=== PATIENT | female | born 1975 | race Hispanic/Latino ===

== ENCOUNTER 2017-10-08 19:35 | Emergency (ER) | payer OTHER | END 2017-10-08 20:11 | disposition home or self-care (01) | LOC: EDH 19:35 | DX: S43.491A Other sprain of right shoulder joint, initial encounter (principal); X58.XXXA Exposure to other specified factors, initial encounter; Y93.89 Activity, other specified; Y92.69 Other specified industrial and construction area as the place of occurrence of the external cause; Y99.8 Other external cause status | CPT/HCPCS: 99281 ==

== ENCOUNTER → 2018-07-16 | Outpatient (CLI) | payer OTHER | END | disposition home or self-care (01) | LOC: RAH 13:21 | PROVIDERS: ATTEND Internal Medicine | DX: R10.9 Unspecified abdominal pain (principal) | CPT/HCPCS: 74021 ==

== ENCOUNTER 2019-06-25 15:00 | Inpatient (IN) | payer OTHER ==
[~2019-06-25] VITALS: Ht 167.6 cm; Wt 79.7 kg
[2019-06-25 15:10] VITALS: BP 119/57
[2019-06-25 15:23] LABS: BASOPHILS % (AUTO) 0.6 % (0.0-5.0); EOSINOPHILS % (AUTO) 2.1 % (0.0-8.0); HEMATOCRIT 40.5 % (36-48); MEAN CORPUSCULAR HEMOGLOBIN 29.3 pg (27.0-33.0); MONOCYTES % (AUTO) 7.9 % (3.0-13.0); NEUTROPHILS % (AUTO) 66.4 % (40.0-77.0); PLATELET COUNT (AUTO) 285 K/uL (130-400); RED BLOOD CELL COUNT(AUTO) 4.55 MIL/uL (4.00-5.50); WHITE BLOOD COUNT (AUTO) 6.6 K/uL (4.8-10.8)
[2019-06-25] MEDS ORDERED: DOCU100C33 PO (15:49)
[2019-06-25] MEDS ORDERED: BIOT10005 PO (15:49)
[2019-06-25] MEDS ORDERED: IBUP-2077 PO (15:49)
[2019-06-25] MEDS ORDERED: MELA10CA2 PO (15:49)
[2019-06-25] MEDS ORDERED: [UNRECOGNIZED DRUG - OTHER] PO (15:50)
[2019-06-26] VITALS (21 sets, daily range): BP systolic 84–114; BP diastolic 50–63
[2019-06-26] MEDS ORDERED: LACTATED RINGERS 1000ML 1,000 ML IV ONE (06:32)
[2019-06-26] MEDS ORDERED: CEFAZOLIN SODIUM 1 GM VIAL ONE (06:32)
[2019-06-26] MEDS ORDERED: SCOPOLAMINE HYDROBROMIDE 1 EACH ADH..PATCH TD ONE (07:02)
[2019-06-26] MEDS ORDERED: MIDAZOLAM HCL 1 MG/ML 2ML VIAL ONE (07:54)
[2019-06-26] MEDS ORDERED: DURAMORPH PF1 MG/ML 10ML AMP IV ONE (07:57)
[2019-06-26] MEDS ORDERED: FENTANYL CITRATE PF 50 MCG/1 ML 2ML VIAL ONE ×2 (07:57→10:35)
[2019-06-26] MEDS ORDERED: CEFAZOLIN SODIUM 1 GM VIAL IVP ONE (08:00)
[2019-06-26] MEDS ORDERED: PROPOFOL 10 MG/ML 20ML VIAL IV ONE (08:10)
[2019-06-26] MEDS ORDERED: ROCURONIUM 10MG/1ML SYR 10 MG/ML ML ONE ×2 (08:10→09:18)
[2019-06-26] MEDS ORDERED: LIDOCAINE PF 2% 5ML ABBOJECT ONE (08:10)
[2019-06-26] MEDS ORDERED: ONDANSETRON HCL 4 MG/2 ML VIAL ONE (08:36)
[2019-06-26] MEDS ORDERED: EPHEDRINE SULFATE 50 MG/ML AMPULE ONE (09:02)
[2019-06-26] MEDS ORDERED: CALDOLOR 800MG+NS 250ML 250 ML IV ONE (10:10)
[2019-06-26] MEDS ORDERED: KETAMINE 50MG/ML SYRINGE 50 MG/ML DISP.SYRIN IV ONE (10:12)
[2019-06-26] MEDS ORDERED: GLYCOPYRROLATE 1 MG/5 ML SYRINGE ONE (10:17)
[2019-06-26] MEDS ORDERED: NEOSTIGMINE 5MG/5ML SYR IV ONE (10:17)
[2019-06-26] MEDS ORDERED: PROMETHAZINE HCL 25 MG/ML 1ML AMPULE IM PRN ×2 (11:15)
[2019-06-26] MEDS ORDERED: MEPERIDINE-PF 75 MG/ML SYG IM PRN (11:15)
--- NOTE | 2019-06-26 11:45 | NUR ---
PATIENT ARRIVAL PATIENT RECEIVED BY BED FROM PACU IN STABLE CONDITION. PATIENT ORIENTED TO ROOM, ASSESSMENT DONE, REFER TO NURSING DOCUMENTATION. WILL CONTINUE TO MONITOR THROUGHOUT SHIFT.
[2019-06-26] MEDS: ACETAMINOPHEN-CODEINE 300/30MG TAB PO PRN (12:13)
--- NOTE | 2019-06-26 17:05 | NUR ---
PHYSICIAN ROUNDING DR. NGUYEN AT BEDSIDE TO ASSESS PATIENT AND DISCUSS PLAN OF CARE. PHYSICIAN DISCUSSED PROCEDURE WITH PATIENT AND INFORMED HER OF CARE AFTER DISCHARGE.
[2019-06-26] MEDS: DEXTROSE 5 %-0.45 % NACL 1,000 ML IV SCH (18:35)
[2019-06-26] MEDS: CALDOLOR 800MG+NS 250ML 250 ML IV SCH (18:35)
[2019-06-26] MEDS: SIMETHICONE 80 MG TAB.CHEW PO PRN (20:40)
[2019-06-26] MEDS: DOCUSATE SODIUM 100 MG CAP PO PRN (20:40)
[2019-06-26] MEDS ORDERED: NALOXONE HCL 0.4 MG/1 ML ML IVP PRN ×2 (22:00)
[2019-06-26] MEDS ORDERED: DiphenhydrAMINE HCL 50 MG/ML VIAL IVP PRN (22:00)
[2019-06-26] MEDS ORDERED: EPHEDRINE SULFATE 50 MG/ML AMPULE IVP PRN (22:00)
[2019-06-26] MEDS ORDERED: ONDANSETRON HCL 4 MG/2 ML VIAL IVP PRN (22:00)
[2019-06-26] MEDS ORDERED: DiphenhydrAMINE HCL 50 MG/ML VIAL IV ONE (22:45)
[2019-06-27] MEDS: CALDOLOR 800MG+NS 250ML 250 ML IV SCH (03:03)
[2019-06-27 03:23] VITALS: BP 91/56
[2019-06-27] MEDS: DEXTROSE 5 %-0.45 % NACL 1,000 ML IV SCH ×4 (05:00→21:01)
[2019-06-27] MEDS: ACETAMINOPHEN-CODEINE 300/30MG TAB PO PRN ×4 (06:40→23:42)
--- NOTE | 2019-06-27 06:50 | NUR ---
Solitario: Solitario Catheter discontinued. Patient tolerated it well, advice to call the first time she gets up. She verbalizes understanding.
[2019-06-27 07:23] LABS: HEMATOCRIT 30.5 % (36-48); MEAN CORPUSCULAR HEMOGLOBIN 29.7 pg (27.0-33.0); MEAN CORPUSCULAR VOLUME 89.8 fL (79-99); PLATELET COUNT (AUTO) 210 K/uL (130-400); RED CELL DISTRIBUTION WIDTH 14.1 % (11.0-15.5); WHITE BLOOD COUNT (AUTO) 14.7 K/uL (4.8-10.8)
[2019-06-27 08:00] VITALS: BP 97/61
[2019-06-27] MEDS ORDERED: SIMETHICONE 80 MG TAB.CHEW ONE (09:38)
[2019-06-27] MEDS: DOCUSATE SODIUM 100 MG CAP PO PRN ×2 (09:41→20:57)
[2019-06-27] MEDS: SIMETHICONE 80 MG TAB.CHEW PO PRN ×4 (09:41→20:57)
[2019-06-27 11:30] VITALS: BP 98/48
[2019-06-27] MEDS: IBUPROFEN 800 MG TAB PO PRN ×2 (11:51→20:59)
[2019-06-27] MEDS ORDERED: HYDROCODONE/ACETAMINOPHEN 5/325 MG TAB PO PRN (15:45)
[2019-06-27 16:00] VITALS: BP 109/66
[2019-06-27] MEDS: BISACODYL 10 MG SUPP.RECT RC PRN (18:36)
[2019-06-27 19:31] VITALS: BP 104/47
[2019-06-27 23:51] VITALS: BP 100/53
[2019-06-28 03:47] VITALS: BP 94/52
[2019-06-28] MEDS: IBUPROFEN 800 MG TAB PO PRN ×2 (05:09→11:42)
[2019-06-28] MEDS: DEXTROSE 5 %-0.45 % NACL 1,000 ML IV SCH (06:10)
[2019-06-28] MEDS ORDERED: ONDANSETRON HCL 4 MG/2 ML VIAL ONE (08:26)
[2019-06-28] MEDS ORDERED: ONDANSETRON HCL 4 MG/2 ML VIAL IVP PRN (08:30)
--- NOTE | 2019-06-28 08:30 | NUR ---
PATIENT AMBULATED AND STARTED C/O OF GAS PAIN AND WAS MEDICATED WITH NORCO X 1 TAB AND WAS GIVEN DULCOLAX SUPPOSITORY AND ZOFRAM FOR C/O NAUSEA PRIOR TO GETTING ORAL MEDS. TOLERATED MEDICATIONS WELL AN HAD NO EMESIS.
[2019-06-28] MEDS: DOCUSATE SODIUM 100 MG CAP PO PRN (08:31)
[2019-06-28] MEDS: BISACODYL 10 MG SUPP.RECT RC PRN (08:35)
--- NOTE | 2019-06-28 10:00 | NUR ---
PT VERBALIZED HAVING A SMALL BM AND PASSING GAS AND FEELS MUCH BETTER.
[2019-06-28 11:50] VITALS: BP 112/67
--- NOTE | 2019-06-28 12:00 | NUR ---
PATIENT TOLERATING ACTIVITY WELL AND FOOD. PIV REMOVED AND DENIES ANY FURTHER FEELING OF NAUSEA.
--- NOTE | 2019-06-28 12:45 | NUR ---
DR. CORONADO ROUNDED AND DISCHARGED PT TO HOME. PATIENT TO FOLLOW UP WITH DR. NGUYEN IN 1-2 WEEKS. SCRIPT FOR PAIN MANAGEMENT LEFT FOR PT.
--- NOTE | 2019-06-28 14:00 | NUR ---
PATIENT GIVEN DISCHARGE INSTRUCTIONS AND SCRIPT FOR PAIN MANAGEMENT. VERBALIZED UNDERSTANDING INSTRUCTIONS GIVEN. DENIES PAIN AT THIS TIME.
--- NOTE | 2019-06-28 14:30 | NUR ---
PATIENT WAS TAKEN VIA W/C TO [facility] AND WAS DISCHARGED TO HER SISTERS IN STABLE CONDITION. PATIENT VERBALIZED FEELING MUCH BETTER AFTER TAKING MOTRIN.
== END 2019-06-28 14:30 | disposition home or self-care (01) | DRG 743 ==
LOC: EDSTATUS 15:00 → DAHIP 06-26 06:20 → WSH 06-26 11:50
PROVIDERS: ADMIT Obstetrics & Gynecology; ATTEND Obstetrics & Gynecology
PROC: 0UT70ZZ Resection of Bilateral Fallopian Tubes, Open Approach (ICD-10-PCS; 2019-06-26)
PROC: 0UT20ZZ Resection of Bilateral Ovaries, Open Approach (ICD-10-PCS; 2019-06-26)
PROC: 0DBU0ZX Excision of Omentum, Open Approach, Diagnostic (ICD-10-PCS; 2019-06-26)
PROC: 0UN00ZZ Release Right Ovary, Open Approach (ICD-10-PCS; 2019-06-26)
PROC: 0TN60ZZ Release Right Ureter, Open Approach (ICD-10-PCS; 2019-06-26)
PROC: 0UT90ZZ Resection of Uterus, Open Approach (ICD-10-PCS; principal; 2019-06-26 07:55)
DX: D25.9 Leiomyoma of uterus, unspecified (principal); N80.9 Endometriosis, unspecified; N73.6 Female pelvic peritoneal adhesions (postinfective); Z83.3 Family history of diabetes mellitus; Z82.49 Family history of ischemic heart disease and other diseases of the circulatory system
CPT/HCPCS: 36415; 84703; 85025; 85027; 86850; 86900; 86901; 88108; 88305; 88307; A4344; G0378; J0690; J1200; J1741; J2001; J2250; J2274; J2405; J2704; J2710; J3010; J3490; J7030; J7120